=== PATIENT | female | born 1975 | race Caucasian/White ===

== ENCOUNTER → 2019-08-15 15:12 | Outpatient (CLI) | payer OTHER, SELFPAY ==
--- NOTE | ~2019-08-15 | MM_ITS ---
EXAMINATION: MM scrn bell implant BI w dionna HISTORY: Screening mammogram TECHNIQUE: Craniocaudal and mediolateral oblique 3-D tomosynthesis images with implant displacement a nd synthetic 2-D images were generated. Craniocaudal and mediolateral oblique views of the breasts wi thout implant displacement were obtained using full field digital mammography. CAD analysis was submi tted and interpreted. COMPARISON: No prior mammogram is available for comparison at this institution. BREAST PARENCHYMAL COMPOSITION: The breasts are extremely dense, which lowers the sensitivity of mamm ography. FINDINGS: Status post bilateral augmentation mammoplasty. There is no evidence of suspicious mass, ca lcification, or architectural distortion to suggest malignancy in either breast. There has been no hernandez spicious interval change. IMPRESSION: 1. No mammographic evidence of malignancy. 2. Recommend routine screening mammography in one year. BI-RADS Category 1: Negative Reviewed, dictated and finalized at location A. 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
== END ==
PROVIDERS: Visit Provider Nurse Practitioner Obstetrics & Gynecology
DX: Z12.31 Encounter for screening mammogram for malignant neoplasm of breast (principal)
CPT/HCPCS: 77063; 77067

== ENCOUNTER → 2020-03-18 08:49 | Outpatient (CLI) | payer OTHER, SELFPAY ==
--- NOTE | ~2020-03-18 | MMUS_ITS ---
EXAMINATION: MM diag bell implant RT w dionna, US breast RT complete HISTORY: Right breast lump near inframammary fold TECHNIQUE: Implant and implant displaced full field and spot 3-D tomosynthesis images of the right br east were performed and synthetic 2-D images were generated. CAD analysis was submitted and interpret ed. High resolution right complete breast ultrasound was performed. COMPARISON: 08/15/2019 bilateral implant digital screening mammogram BREAST PARENCHYMAL COMPOSITION: The breasts are extremely dense, which lowers the sensitivity of mamm ography. FINDINGS: MAMMOGRAPHIC FINDINGS: Right augmentation mammoplasty. No suspicious mass or architectural distortion, malignant calcification, skin thickening or retractio n is evident. No definite mammographic abnormality is noted at the area of clinical complaint. Due to the complaint of a right breast mass and the very dense stroma which may obscure masses, compl ete right breast ultrasound examination was performed. ULTRASOUND: At 9:00 5 cm from the nipple there is a parallel circumscribed 1.5 x 4.8 x 4.1 mm hypoechoic or sonol ucent lesion with minimal septation, no posterior shadowing; the sonographic features are benign. There is a similar sonolucency measuring 10 x 49 x 52 mm at 4:00 position 8 cm from the nipple. No suspicious solid lesion or shadowing is detected anywhere in the right breast. Right breast implant is noted. IMPRESSION: 1. No mammographic evidence of malignancy 2. Routine mammographic screening is recommended, with supplemental ultrasound as determined appropri ate by patient and physician BI-RADS Category 2: Benign finding(s). Reviewed, dictated and finalized at location A. IMPRESSION: 1. No mammographic evidence of malignancy 2. Routine mammographic screening is recommended, with supplemental ultrasound as determined appropriate by patient and physician BI-RADS Category 2: Benign finding(s).
== END ==
PROVIDERS: Visit Provider Nurse Practitioner Obstetrics & Gynecology
DX: N63.10 Unspecified lump in the right breast, unspecified quadrant (principal); Z98.82 Breast implant status
CPT/HCPCS: 76641; 77061; 77065; G0279

== ENCOUNTER 2020-12-28 08:04 | Outpatient (CLI) | payer OTHER, SELFPAY ==
--- NOTE | ~2020-12-28 | XR_ITS ---
EXAMINATION: XR barium swallow DATE: 12/28/2020 08:51 INDICATION: Dysphagia. Throat clearing. TECHNIQUE: The patient drank thick barium, gas-producing crystals, and thin barium. Fluoroscopic spot radiographs of the hypopharynx and esophagus were obtained. A total of 1369 images were obtained. Fl uoroscopy exposure time was 1.6 minutes. Total DAP was 3.544 mGycm^2 COMPARISON: None. FINDINGS: The pharynx is symmetric and without evidence of mass lesion or mucosal irregularity. The e sophagus is normal without mass or stricture. Esophageal motility is normal. There is no hiatal herni a. There was no gastroesophageal reflux with provocative maneuvers. IMPRESSION: 1. Normal esophagram. Reviewed, dictated and finalized at location A. IMPRESSION: 1. Normal esophagram.
== END 2020-12-28 08:05 | disposition home or self-care (01) ==
PROVIDERS: PCP Nurse Practitioner Family; Visit Provider Otolaryngology
DX: R09.89 Other specified symptoms and signs involving the circulatory and respiratory systems (principal); R13.10 Dysphagia, unspecified
CPT/HCPCS: 74220

== ENCOUNTER → 2021-05-18 12:14 | Outpatient (CLI) | payer OTHER, SELFPAY ==
--- NOTE | ~2021-05-18 | MM_ITS ---
EXAMINATION: MM scrn bell implant BI w dionna HISTORY: Screening mammogram TECHNIQUE: Craniocaudal and mediolateral oblique 3-D tomosynthesis images with implant displacement a nd synthetic 2-D images were generated. Craniocaudal and mediolateral oblique views of the breasts wi thout implant displacement were obtained using full field digital mammography. CAD analysis was submi tted and interpreted. COMPARISON: 03/18/2020, 08/15/2019 BREAST PARENCHYMAL COMPOSITION: The breasts are extremely dense, which lowers the sensitivity of mamm ography. FINDINGS: There is no evidence of suspicious mass, calcification, or architectural distortion to sugg est malignancy in either breast. There has been no suspicious interval change. IMPRESSION: 1. No mammographic evidence of malignancy. 2. Recommend routine screening mammography in one year. BI-RADS Category 1: Negative Reviewed, dictated and finalized at location A. 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
== END ==
PROVIDERS: PCP Nurse Practitioner Family; Visit Provider Nurse Practitioner Obstetrics & Gynecology
DX: Z12.31 Encounter for screening mammogram for malignant neoplasm of breast (principal)
CPT/HCPCS: 77063; 77067

== ENCOUNTER → 2022-07-20 16:03 | Outpatient (CLI) | payer OTHER, SELFPAY ==
--- NOTE | ~2022-07-20 | MM_ITS ---
EXAMINATION: MM scrn bell implant BI w dionna HISTORY: Screening mammogram TECHNIQUE: Craniocaudal and mediolateral oblique 3-D tomosynthesis images with implant displacement a nd synthetic 2-D images were generated. Craniocaudal and mediolateral oblique views of the breasts wi thout implant displacement were obtained using full field digital mammography. CAD analysis was submi tted and interpreted. COMPARISON: 05/18/2021, 03/18/2020, 08/15/2019 BREAST PARENCHYMAL COMPOSITION: The breasts are heterogeneously dense, which may obscure small masses . FINDINGS: There is no evidence of suspicious mass, calcification, or architectural distortion to sugg est malignancy in either breast. There has been no suspicious interval change. IMPRESSION: 1. No mammographic evidence of malignancy. 2. Recommend routine screening mammography in one year. BI-RADS Category 1: Negative Reviewed, dictated and finalized at location A. CH ENGINE OPTIMIZATION CONSULTANT
== END ==
PROVIDERS: PCP Nurse Practitioner Obstetrics & Gynecology; Visit Provider Nurse Practitioner Obstetrics & Gynecology
DX: Z12.31 Encounter for screening mammogram for malignant neoplasm of breast (principal)
CPT/HCPCS: 77063; 77067

== ENCOUNTER 2023-05-05 11:30 | Outpatient (CLI) | payer OTHER, SELFPAY | END 2023-05-05 11:31 | disposition home or self-care (01) | LOC: ANHSURGERY 11:37 | PROVIDERS: PCP Nurse Practitioner Obstetrics & Gynecology; Visit Provider Obstetrics & Gynecology | DX: N92.0 Excessive and frequent menstruation with regular cycle (principal); Z01.818 Encounter for other preprocedural examination | CPT/HCPCS: 36415; 86850; 86900; 86901 ==

== ENCOUNTER 2023-05-10 03:24 | Day surgery (SDC) | payer OTHER, SELFPAY ==
[2023-05-03 08:42] VITALS: BMI 21.4
--- NOTE | 2023-05-03 08:49 | PC.NURSE ---
Report to the Outpatient Waiting Room, entrance under the green pavilion located off [facility], at time 7:00 on date 05/10/23. Planned Procedure Time: 9:00. Time changes happen often and if your time is changed the preop area will call you the afternoon before. - You and your visitor will be asked to self-screen and do not enter if you have any COVID symptoms. - A mask is optional within the hospital at this time. Patients may have clear liquids (water, carbonated beverages, clear teas, apple juice) until 3 hours prior to surgery (6:00) with a maximum of 20 ounces. - No food from midnight until time of surgery Take the following medications with a SIP of water the morning of surgery: NONE DO NOT STOP ANY OF YOUR OTHER PRESCRIPTION MEDICATIONS PRIOR TO SURGERY ?EXCEPT THE FOLLOWING Medications to discontinue per physician: VITAMINS/SUPPLEMENTS Date to take last dose: 05/06/23 Please no make-up, nail spanish, hairspray, perfume, deodorant, or body powder the day of surgery. No jewelry (including any body piercings) or valuables the day of surgery, leave them at home. Please take a shower or bath the night before, or the morning of, surgery with an antibacterial soap. Wear comfortable, loose fitting clothing. - Jewelry must be removed prior to entering the operating room. Rings and piercings that are not removed may be cut off. - The hospital will not accept responsibility for valuables. - Please leave all valuables, including medications, at home the day of surgery. If you are going home after surgery, a licensed driver supervisor must drive you home. - NO public transportation without another adult if you receive anesthesia. - We recommend that an adult stay with you for 24 hours following discharge. - We also recommend that you do not drive, make important decision, drink alcoholic beverages, or take any drugs that were not prescribed by your health care provider for at least 24 hours after your discharge time. Follow any additional instructions given to you from your surgeon. If you or anyone in your household have experienced Covid symptoms in the past week, please notify your surgeon or the nurse liaison at the phone number below for possible testing. Telephone instructions given to PT - ADAM CABRERA and asked if any additional questions and then verbalized understanding. Patient advised to call surgeon office or pre surgery nurse liaison [phone] if any additional questions.
[2023-05-10] VITALS (13 sets, daily range): BP systolic 102–112; BP diastolic 57–77; PULSE 52–93; RESP 13–18; TEMP 36.1–37.5; O2SAT 98–100; BMI 21.4
--- NOTE | 2023-05-10 07:13 | WPDHPUPDATE1 ---
History and Physical Update Update Date/Time: 05/10/23 07:13 History and Physical has been reviewed, including an updated exam of the patient. There are NO changes in the patient's condition. Risks, benefits, and alternatives have been discussed and questions answered. Patient agrees to proceed with procedure.
[2023-05-10] MEDS: LACTATED RINGERS 1,000 ML 30 ML IV CONT ×2 (08:15→10:42)
--- NOTE | 2023-05-10 08:24 | P.PNAN_ITS ---
Anes - Initial Pre Proc Eval Procedure: Operation Date: 05/10/23 09:00 Proposed Procedures p Total Laparoscopic Hysterectomy with Bilateral Salpingectomy, with Left Oophorectomy - Mague Nance MD Date/Time: 05/10/23 08:24 Surgeon: Mague Nance MD Pre Op Diagnosis: menorrhagia, pain in pelvic Patient Data Age: 47 Gender: F Height: 1.69 m Weight: 61.25 kg Allergies Allergy/AdvReac Type Severity Reaction Status Date / Time No Known Allergies Allergy Verified 05/03/23 08:43 Home Medications Medication Instructions Recorded Confirmed Type multivitamin 1 tablet PO DAILY 12/23/20 05/03/23 History Lactobacillus 1 cap PO DAILY 05/03/23 05/03/23 History acidophilus-Bifidobac.animalis 2.5 billion cell capsule (Daily Probiotic) Patient hx anesthesia problems: none Family hx anesthesia problems: none Results Review: All pre-operative results and documents have been reviewed as part of the pre- operative evaluation. PMFSH Family History Family History Mother Depression Grandparent Colon cancer Lung cancer Grandparent Malignant neoplasm of prostate Skin cancer Social History Social History Smoking status: Never smoker Tobacco type: cigarettes Alcohol intake: current Drinks per week: 1 Substance use: never Substance use type: does not use Living arrangements: with family Spiritual care concerns: No Anes - Eval Final PreProcedure Day of Procedure 05/10/23 08:24 Patient weight: normal Heart: regular rate and rhythm Lungs: clear to auscultation Airway: Mallampati scale class II Neurological: alert and oriented Last oral intake: >/= 8 hours ASA classification: I Emergent: yes Anesthetic plan: proceed Anesthesia type and monitoring: general ETT and standard monitoring Results Review: All pre-operative results and documents have been reviewed as part of the pre- operative evaluation. Informed Consent: The patient's anesthetic plan and its attendant risks and benefits were discussed with the patient/family/POA. Questions were solicited and answers provided to the satisfaction of the patient/family/POA.
[2023-05-10] MEDS: KETOROLAC 15 MG/ML VIAL (*BKC) IV PUSH (08:28)
[2023-05-10] MEDS: ACETAMINOPHEN 500 MG TABLET 1000 MG PO (08:28)
[2023-05-10] MEDS: ceFAZolin 2 GM/D5W 50 ML 2 GM/50 ML BAG IVPB (08:44)
[2023-05-10] MEDS: ceFAZolin SODIUM 1 GM VIAL (10:16)
[2023-05-10] MEDS: fentaNYL CITRATE INJ (*CRX) 100 MCG/2 ML VIAL 25 MCG IV PUSH ×2 (11:37→12:02)
[2023-05-10] MEDS: KETOROLAC 30 MG/ML VIAL (*BKC) IV PUSH ×2 (12:38→20:23)
[2023-05-10] MEDS: DEXTROSE 5%/0.45% SOD CHL 1,000 ML 125 ML IV CONT (12:38)
[2023-05-10] MEDS: HYDROcodone/acetaminophen (*CRX) 5-325 MG TABLET 1 TAB PO ×3 (14:17→20:23)
[2023-05-11 00:30] VITALS: BP 106/56; PULSE 79; RESP 16; TEMP 37.2; O2SAT 97
[2023-05-11 03:00] VITALS: BP 113/73; PULSE 61; RESP 16; TEMP 36.9; O2SAT 99
[2023-05-11] MEDS: HYDROcodone/acetaminophen (*CRX) 5-325 MG TABLET 1 TAB PO ×2 (03:01→09:07)
[2023-05-11] MEDS: KETOROLAC 30 MG/ML VIAL (*BKC) IV PUSH (03:01)
--- NOTE | 2023-05-11 08:03 | PM.GYNPNOP ---
CATERPILLAR OPERATOR - A/P Postoperative Procedures: Procedures Operation Date: 05/10/23 09:00 Actual Procedure Side Surgeon p Total Laparoscopic Hysterectomy with Bilateral Salpingectomy, with Left Oophorectomy Left R. Rakan Nance MD Postoperative day: 1 Postoperative status: doing well Postoperative plan: see orders Time Spent With Patient Time: Total time spent is greater than 50% in coordination of care (as documented) at patient's floor/unit and/or counseling patient: Time with patient: less than 15 minutes CATERPILLAR OPERATOR- PN:Subj Post-Op Subjective Date/time seen: 05/11/23 08:03 Subjective: patient reports feeling better, patient has no complaints and pain is well controlled Exam Const: General: healthy appearing, comfortable and no acute distress Resp: Auscultation: clear to auscultation bilaterally, no rales, no rhonchi and no wheezes Cardio: Rate: regular rate Heart sounds: no click, no murmurs and no rubs GI: Inspection: non-distended Auscultation: normal bowel sounds Extrem: General: normal to inspection, no pedal edema and no calf tenderness CATERPILLAR OPERATOR - PN: Obj Data Vital Signs Vital Signs: Vital Signs - 24 hr 05/10/23 10:42 05/10/23 10:45 05/10/23 11:00 Temperature 96.9 F L Pulse Rate 65 64 61 Respiratory Rate 15 13 15 Blood Pressure 103/69 112/74 111/77 Pulse Oximetry 100 100 100 Oxygen Delivery Simple Face Mask Simple Face Mask Oxygen Flow Rate 6 6 6 05/10/23 11:06 05/10/23 11:16 05/10/23 11:30 Temperature Pulse Rate 52 L 61 Respiratory Rate 13 14 Blood Pressure 111/74 110/71 Pulse Oximetry 100 100 100 Oxygen Delivery Room Air Room Air Room Air Oxygen Flow Rate 05/10/23 11:45 05/10/23 12:00 05/10/23 12:12 Temperature Pulse Rate 56 L 61 64 Respiratory Rate 15 14 14 Blood Pressure 112/70 103/66 102/71 Pulse Oximetry 100 100 100 Oxygen Delivery Room Air Room Air Room Air Oxygen Flow Rate 05/10/23 12:25 05/10/23 16:15 05/10/23 19:40 Temperature 97.7 F 97.8 F 99.5 F Pulse Rate 66 93 78 Respiratory Rate 16 18 16 Blood Pressure 112/70 107/71 111/74 Pulse Oximetry 100 100 98 Oxygen Delivery Oxygen Flow Rate 05/11/23 00:30 05/11/23 03:00 Temperature 98.9 F 98.5 F Pulse Rate 79 61 Respiratory Rate 16 16 Blood Pressure 106/56 L 113/73 Pulse Oximetry 97 99 Oxygen Delivery Oxygen Flow Rate Intake/Output Intake/Output: Intake & Output 05/08/23 05/09/23 05/10/23 05/11/23 23:59 23:59 23:59 23:59 Intake Total 1735 Output Total 820 Balance 915 Meds/Results Medications: Active Medications Generic Name Dose Route Start Last Admin Trade Name Freq PRN Reason Stop Dose Admin Hydrocodone Bitart/Acetaminophen 1 tab 05/10/23 12:16 05/11/23 03:01 Hydrocodone/Acetaminophen (*Crx) 5-325 Mg Tablet PO 1 tab Q3H PRN Administration Pain Rated 5 or Less Hydrocodone Bitart/Acetaminophen 1 tab 05/10/23 12:16 Hydrocodone/Acetaminophen (*Crx) 10-325 Mg Tablet PO Q3H PRN Pain Rated 6 or Greater Dextrose/Sodium Chloride 1,000 mls @ 125 mls/hr 05/10/23 12:16 05/11/23 05:37 Dextrose 5% Sodium Chloride 0.45% IV CONT Not Given .Q8H NURA Ibuprofen 600 mg 05/10/23 12:16 Ibuprofen 600 Mg Tablet PO Q6H PRN Cramping Ketorolac Tromethamine 30 mg 05/10/23 12:16 05/11/23 03:01 Ketorolac 30 Mg/Ml Vial (*Bkc) IV PUSH 05/15/23 12:15 30 mg Q6H PRN Administration Pain Rated 4-6 Naloxone HCl 0.1 mg 05/10/23 12:16 Naloxone Hcl 0.4 Mg/Ml Vial IV PUSH Q2M PRN Respiratory rate less than 10 Ondansetron HCl 4 mg 05/10/23 12:16 Ondansetron Inj 4 Mg/2 Ml Vial IV PUSH Q6H PRN Nausea And Vomiting
[2023-05-11 08:20] VITALS: BP 108/58; PULSE 72; RESP 16; TEMP 37.1; O2SAT 100
--- NOTE | 2023-05-11 08:45 | WPDANESPN ---
Anes - Prog Note Post-Op Date/Time: 05/11/23 08:45 Cardiovascular status: normal Respiratory status: normal Airway patency: baseline Mental status: baseline Post-Op hydration status: normal Vital Signs: Last Vital Signs Temp 36.9 C 05/11/23 03:00 Pulse 61 05/11/23 03:00 Resp 16 05/11/23 03:00 BP 113/73 05/11/23 03:00 Pulse Ox 99 05/11/23 03:00 O2 Del Method Room Air 05/10/23 12:12 O2 Flow Rate 6 05/10/23 11:00 Pain Score (VAS): 2/10 I/O: Intake & Output 05/10/23 05/11/23 05/11/23 23:59 07:59 15:59 Intake Total 1685 Output Total 800 Balance 885 Post-procedural complaints: other (shivering) Patient Feedback: Patient satisfied with anesthetic care.
[2023-05-11] MEDS: IBUPROFEN 600 MG TABLET PO (09:07)
--- NOTE | 2023-06-11 20:46 | W.PM.PROC2 ---
Procedure Note - Detailed Date of Procedure 06/11/23 Pre-op Diagnosis menorrhagia, pain in pelvic Post-op Diagnosis Same Procedure Performed Total laparoscopic hysterectomy and left salpingo-oophorectomy. Surgeon Mague Nance MD Anesthesia General Findings mildly enlarged uterus, normal-appearing bilateral tubes and ovaries. Description of Procedure This patient was taken to the operating room. She was prepped and draped in the dorsal lithotomy position after induction of general anesthesia. The uterine manipulator and Yasemin cup were placed. This was done with a speculum and tenaculum. The speculum was placed. The cervix was grasped with a tenaculum. The stay sutures were placed at 3 and 9:00 a.m.. The stay sutures of 0 Vicryl were brought through the appropriately sized Yasemin cup. The tip of the LU manipulator was placed in the intrauterine cavity. The cup was slid into place around the cervix and into the fornices. It was locked into place. The sutures were then wrapped around the handle and tied under tension. A 5 mm skin incision was made in the left upper quadrant the abdomen. A 5 mm trocar was inserted into the intrauterine cavity under direct visualization of the scope. Pneumoperitoneum was achieved. A left lower quadrant 11 mm incision was made with scalpel. An 11 mm trocar was inserted into the anterior abdominal cavity under direct visualization the scope. A 5 mm infraumbilical incision was made with a scalpel and a 5 mm trocar was inserted the intra-abdominal cavity under direct visualization of the scope. Bilateral ureteral lysis was performed. This was done from the pelvic brim down to the uterine artery. This was done with careful dissection using sharp and blunt dissection. On the left: The infundibulopelvic ligaments were isolated after identification of the ureters bilaterally. These infundibulopelvic ligaments were cauterized and transected with LigaSure cautery. The para ovarian tissue was cauterized and transected with LigaSure cautery bilaterally. Moving around the ovary into the broad ligament the tissue was cauterized transected with LigaSure cautery. The round ligaments were cauterized transected with LigaSure cautery this was all done in a bilateral fashion. on the right: The fallopian tube was removed. The mesosalpinx was cauterized and transected stalk hinojosa fashion around the tube towards the cornua. The fallopian tube was amputated at the cornua and taken off the left lower quadrant trocar site. The round ligament and suspensory ligament the ovary was cauterized and transected. In a stepwise fashion along the lateral aspects of the uterus the round ligament and broad ligaments were cauterized transected down to the level of the uterine arteries. A bladder flap was created in the bladder was moved distally to the end of the cervix and over the Yasemin cup. The bilateral uterine arteries were cauterized and transected. Colpotomy was then performed. In a circumferential fashion the vagina was transected using unipolar cautery. The incision was made down on the Yasemin cup. The uterus, cervix, fallopian tubes and ovaries were taken out through the vagina. A pneumo occluder was placed in the vagina. The vaginal cuff was closed with a 0 V lock suture in a running fashion. The pelvis was irrigated with copious amounts antibiotic irrigation. The ureters were again examined and found to be intact and flowing freely under the uterine arteries into the bladder. The bladder was intact. It was examined directly. The vagina was irrigated with Betadine solution after removal of the Pneumo occluder. The patient was taken to recovery room. She was stable condition. Sponge lap and needle counts were correct x2. Estimated Blood Loss 75 Urine Output 250 Drains Yes Packing No Pathology Yes Complications No immediate complications Condition Stable Disposition Floor
== END 2023-05-11 10:25 | disposition home or self-care (01) ==
LOC: ANHSURGERY 06:58 → ANHOB2 12:18
PROVIDERS: PCP Nurse Practitioner Obstetrics & Gynecology; Visit Provider Obstetrics & Gynecology
PROC: 0UT9FZZ Resection of Uterus, Via Natural or Artificial Opening With Percutaneous Endoscopic Assistance (ICD-10-PCS; CPT 58571; principal; 2023-05-10 09:00)
DX: N92.0 Excessive and frequent menstruation with regular cycle (principal); R10.2 Pelvic and perineal pain; N83.202 Unspecified ovarian cyst, left side
CPT/HCPCS: 58571; 36415; 86850; 86900; 86901; 88307; 99199; A9270; J0690; J1100; J1170; J1885; J2250; J2405; J2704; J3010; J7120

== ENCOUNTER → 2023-08-22 11:48 | Outpatient (CLI) | payer OTHER, SELFPAY ==
--- NOTE | ~2023-08-22 | MM_ITS ---
EXAMINATION: MM scrn bell implant BI w dionna HISTORY: Screening mammogram TECHNIQUE: Craniocaudal and mediolateral oblique 3-D tomosynthesis images with implant displacement a nd synthetic 2-D images were generated. Craniocaudal and mediolateral oblique views of the breasts wi thout implant displacement were obtained using full field digital mammography. CAD analysis was submi tted and interpreted. COMPARISON: Comparison to multiple prior studies sequentially, with oldest reviewed study dated 08/15. BREAST PARENCHYMAL COMPOSITION: Dense: The breasts are extremely dense, which lowers the sensitivity of mammography. FINDINGS: There is no evidence of suspicious mass, calcification, or architectural distortion to sugg est malignancy in either breast. There has been no suspicious interval change. IMPRESSION: 1. No mammographic evidence of malignancy. 2. Recommend routine screening mammography in one year. BI-RADS Category 1: Negative Reviewed, dictated and finalized at location A. SPOTTER
== END ==
PROVIDERS: PCP Nurse Practitioner Obstetrics & Gynecology; Visit Provider Nurse Practitioner Obstetrics & Gynecology
DX: Z12.31 Encounter for screening mammogram for malignant neoplasm of breast (principal)
CPT/HCPCS: 77063; 77067

== ENCOUNTER 2023-12-15 08:15 | Outpatient (CLI) | payer BC, SELFPAY ==
--- NOTE | ~2023-12-15 | MMUS_ITS ---
EXAMINATION: MM diag bell implant RT w dionna, US breast RT complete HISTORY: Palpable right breast abnormality. TECHNIQUE: Additional 3-D tomosynthesis images of the right breast were performed and synthetic 2-D i mages were generated. CAD analysis was submitted and interpreted. High resolution complete right adrianne st ultrasound was performed. COMPARISON: 08/15/2019 BREAST PARENCHYMAL COMPOSITION: Dense: The breasts are extremely dense, which lowers the sensitivity of mammography. FINDINGS: MAMMOGRAPHIC FINDINGS: There are no suspicious masses, calcifications or architectural distortion in the right breast to sug gest malignancy. There is a subpectoral breast implant. ULTRASOUND: Complete US of all 4 quadrants of the right breast and retroareolar region was reviewed. At 3:00, 4 c m from the nipple, there is a 5 mm cyst. At 6:00, 7 cm from the nipple there is an oval hypoechoic ma ss with parallel orientation measuring 6 mm. No posterior features or internal vascularity. At 9:00, 3.5 cm from the nipple there is a 9 mm cyst. At 10:00, 7 cm from the nipple there is a 1.3 cm cyst. A t 9:00, 6 cm from the nipple, there is a 5 mm cyst. At 11:00, 10 cm from the nipple, there is an 8 mm cyst. IMPRESSION: 1. Probable benign right breast mass at 6:00, 7 cm from the nipple. Multiple additional benign cysts are present in the right breast. 2. Recommend 6 month follow-up Limited right breast ultrasound BI-RADS category 3, probably benign findings. Reviewed, dictated and finalized at location B. IMPRESSION: 1. Probable benign right breast mass at 6:00, 7 cm from the nipple. Multiple ad ditional benign cysts are present in the right breast. 2. Recommend 6 month follow-up Limited right breast ultrasound BI-RADS category 3, probably benign findings.
== END 2023-12-15 08:16 ==
LOC: MICIMG 08:17
PROVIDERS: PCP Nurse Practitioner Obstetrics & Gynecology; Visit Provider Nurse Practitioner Obstetrics & Gynecology
DX: R92.8 Other abnormal and inconclusive findings on diagnostic imaging of breast (principal)
CPT/HCPCS: 76641; 77061; 77065; G0279

== ENCOUNTER 2024-01-15 12:39 | Outpatient (CLI) | payer BC, SELFPAY ==
--- NOTE | ~2024-01-15 | MR_ITS ---
MR breast BI wo/w con 01/16/2024 08:16 CDT INDICATION: Right breast mass TECHNIQUE: MRI of the breasts perform using standard protocol pre-and post IV contrast with the follo wing sequences: Axial T2 STIR, axial T1, axial vibrant T1 with fat suppression precontrast and multip hasic postcontrast. 12 cc MultiHance administered intravenously. COMPARISON: Diagnostic mammogram and ultrasound dated 12/15/2023 FINDINGS: There are no abnormalities on the precontrast sequences. There is mild background parenchym al enhancement. In the lower outer quadrant of the right breast at 7:00, middle third, 6.1 cm from th e nipple there is an oval 5 x 5 x 3 mm mass which appears circumscribed. There is heterogeneous enhan cement with rapid washout kinetics. This mass lies anterior to the right breast implant. This likely corresponds to the mammographic and sonographic abnormality. No evidence of signal abnormalities in t he axillary or internal mammary node distributions. No evidence for implant rupture. There are normal radial folds. There are multiple right breast cysts. LEFT BREAST: No signal abnormalities on precontrast sequences. There is mild background parenchymal enhancement. No enhancing lesions following contrast administration. No areas of enhancement meeti ng threshold criteria on CAD analysis. No evidence of signal abnormalities in the axillary or inter nal mammary node distributions. No evidence for implant rupture. There are normal radial folds. There are left breast cysts. IMPRESSION: 1: Right breast: Oval circumscribed 5 mm mass with rapid washout kinetics at 7:00 in the lower outer quadrant 6.1 cm from the nipple. This likely corresponds to the ultrasound finding from 12/15/2023. T his is likely benign. Six-month follow-up right breast ultrasound recommended. BI-RADS Category 3. 2: Left breast: Negative. No evidence of malignancy. BI-RADS category 1. Recommend annual mammogr aphy follow-up. Follow-up MRI may be useful for supplementing mammographic evaluation as clinically indicated. Reviewed, dictated and finalized at location B. IMPRESSION: 1: Right breast: Oval circumscribed 5 mm mass with rapid washout kinetics at 7 :00 in the lower outer quadrant 6.1 cm from the nipple. This likely corresponds to the ultrasound finding from 12/15/2023. This is likely benign. Six-month fol low-up right breast ultrasound recommended. BI-RADS Category 3. 2: Left breast: Negative. No evidence of malignancy. BI-RADS category 1. Re commend annual mammography follow-up. Follow-up MRI may be useful for supplementing mammographic evaluation as clinic ally indicated.
== END 2024-01-15 12:40 | disposition home or self-care (01) ==
PROVIDERS: Visit Provider Surgery
DX: R92.8 Other abnormal and inconclusive findings on diagnostic imaging of breast (principal); Z98.82 Breast implant status; N63.10 Unspecified lump in the right breast, unspecified quadrant
CPT/HCPCS: 77049; A9577; C8908

== ENCOUNTER 2024-08-27 15:48 | Outpatient (CLI) | payer BC, SELFPAY ==
--- NOTE | ~2024-08-27 | MM_ITS ---
EXAMINATION: MM scrn bell implant BI w dionna HISTORY: Screening mammogram TECHNIQUE: Craniocaudal and mediolateral oblique 3-D tomosynthesis images with implant displacement a nd synthetic 2-D images were generated. Craniocaudal and mediolateral oblique views of the breasts wi thout implant displacement were obtained using full field digital mammography. CAD analysis was submi tted and interpreted. COMPARISON: 12/15/2023, 08/22/2023, 07/20/2022, 05/18/2021 BREAST PARENCHYMAL COMPOSITION: The breasts are extremely dense, which lowers the sensitivity of mamm ography. FINDINGS: There is no evidence of suspicious mass, calcification, or architectural distortion to sugg est malignancy in either breast. There has been no suspicious interval change. IMPRESSION: No mammographic evidence of malignancy. Recommend routine screening mammography in one year. BI-RADS Category 1: Negative Reviewed, dictated and finalized at [facility]. [employer]
== END 2024-08-27 15:49 | disposition home or self-care (01) ==
PROVIDERS: PCP Obstetrics & Gynecology; Visit Provider Obstetrics & Gynecology
DX: Z12.31 Encounter for screening mammogram for malignant neoplasm of breast (principal)
CPT/HCPCS: 77063; 77067

== ENCOUNTER 2024-10-18 10:13 | Outpatient (CLI) | payer BC, SELFPAY ==
--- NOTE | ~2024-10-18 | US_ITS ---
US breast RT limited 10/18/2024 10:24 Indication: Follow-up right breast mass Procedure: High-resolution Limited ultrasound of the right breast Comparison: Ultrasound dated 12/15/2023 Findings: Stable benign oval circumscribed parallel oriented hypoechoic mass measuring 5 mm without i nternal vascularity or posterior features, consistent with benign intramammary lymph node. No sonogra phic evidence for malignancy. Impression: 1: No evidence for malignancy in the right breast. Benign finding. Routine yearly screening mammogram and regular clinical breast examination are recommended. BI-RADS CATEGORY 2 - BENIGN FINDINGS Reviewed, dictated and finalized at location B. Impression: 1: No evidence for malignancy in the right breast. Benign finding. Routine yearly screening mammogram and regular clinical breast examination are recommended. BI-RADS CATEGORY 2 - BENIGN FINDINGS
== END 2024-10-18 10:14 | disposition home or self-care (01) ==
LOC: MICIMG 10:13
PROVIDERS: PCP Obstetrics & Gynecology; Visit Provider Surgery
DX: R92.8 Other abnormal and inconclusive findings on diagnostic imaging of breast (principal); Z98.82 Breast implant status; N63.10 Unspecified lump in the right breast, unspecified quadrant
CPT/HCPCS: 76642

== ENCOUNTER 2025-04-30 13:52 | Outpatient (CLI) | payer OTHER, SELFPAY ==
--- NOTE | ~2025-04-30 | MR_ITS ---
MR breast BI wo/w con 05/01/2025 07:18 CDT INDICATION: Inconclusive findings on prior diagnostic imaging. Previous 5 mm right breast mass seen at lower outer quadrant 6.1 cm from the nipple. TECHNIQUE: MRI of the breasts perform using standard protocol pre-and post IV contrast with the following sequences: Axial T2 STIR, axial T1, axial vibrant T1 with fat suppression precontrast and multiphasic postcontrast. 12 cc MultiHance administered intravenously. COMPARISON: MRI dated 01/15/2024 FINDINGS: There is mild bilateral uptake in the periimplant soft tissues, right greater than left, likely capsular fibrosis/contraction or fat necrosis. There are a few small bilateral breast cysts. Right breast: There are no abnormalities on the precontrast sequences. There is moderate background parenchymal enhancement. No enhancing lesions following contrast administration. No areas of enhancement meeting threshold criteria on CAD analysis. No evidence of signal abnormalities in the axillary or internal mammary node distributions. LEFT BREAST: No signal abnormalities on precontrast sequences. There is moderate background parenchymal enhancement. No enhancing lesions following contrast administration. No areas of enhancement meeting threshold criteria on CAD analysis. No evidence of signal abnormalities in the axillary or internal mammary node distributions.] IMPRESSION: 1: Right breast: Negative. No evidence of malignancy. BI-RADS category 2. Recommend annual mammography follow-up. 2: Left breast: Negative. No evidence of malignancy. BI-RADS category 2. Recommend annual mammography follow-up. Reviewed, dictated and finalized at location B. IMPRESSION: 1: Right breast: Negative. No evidence of malignancy. BI-RADS category 2. Recommend annual mammography follow-up. 2: Left breast: Negative. No evidence of malignancy. BI-RADS category 2. Re commend annual mammography follow-up.
--- OUTSIDE RECORDS SUMMARY | 2025-04-30 15:35 | XMS_ITS | Patient Health Record ---
Author Organization [facility] Address [address] [place] [address] Care Team Providers Care Corrections Sergeant Name Role Phone Arielle neely Primary Care Provider MirelaKENDRA Holland Unavailable [phone] Allergies No Known Allergies Reason For Referral No Information Medications Medication SIG (Take, Route, Frequency, Duration) Notes Start Date End Date Status Stool Softener 100 MG Capsule 1 capsule as needed Orally Once a day; Duration: 30 day(s) Active Multivitamin - Tablet 1 tablet Orally On ce a day; Duration: 30 day(s) Active Probiotic - Tablet Delayed Release as directed Orally Active Social History Tobacco Use: Social History Observation Description Date Details (start date - stop date) Never Smoker NA - NA Social History Tobacco Use: Social Info Question Answer Notes Tobacco Use/Smoking Are you a nonsmoker Problems Problem Type SNOMED Code ICD Code Onset Dates Problem Status W/U Status Risk Notes Problem Pain co-occurrent and due to varicose veins of bilateral legs ([id number]) Varicose veins of leg with pain, bilateral (I83.813) Active confirmed Plan Of Treatment No Information Insurance Providers Payer Name Payer Address Payer Phone Subscriber Number Group Number Insured Name Patient Relationship to Insured Coverage Start Date Coverage End Date INS [address] [place] [address] [id number] Jaswinder Flores Spouse - patient is the spouse of the insured Medical (General) History Surgical History Surgery Date(Month/Year) Tonsil removal 2003 breast augmentation 2013
--- OUTSIDE RECORDS SUMMARY | 2025-04-30 15:36 | XMS_ITS | Clinical Summary ---
Author Organization [facility] Address [address] [place] [address] Care Team Providers Care Director Of Broadcast Name Role Phone Arielle Olsen NP Primary Care Provider [phone] Allergies No known active allergies Medications multivitamin (MULTIPLE VITAMINS ORAL) Take by mouth A ctive estradioL (ESTRACE) 1 mg tablet Take 1 tablet (1 mg total) by mouth 4 Active docusate sodium (COLACE) 100 mg capsule daily Active cyclobenzaprine (FLEXERIL) 5 mg tablet Take 1 tablet (5 mg total) by mouth nightly as needed for muscle spasms 30 tablet 4 Active Additional Information Patient not taking.Reported on 07/11/2024 naproxen (NAPROSYN) 500 mg tablet Take 1 tablet (500 mg total) by mouth 2 (two) times a day as needed for pain (pain) 60 tablet 3 4 Active acetaminophen (TYLENOL) 500 mg tablet Take 2 tablets (1,000 mg total) by mouth as needed for pain Active Active Problems Problem Noted Date Diagnosed Date Hot tub folliculitis 05/19/2024 Assessment & Plan (05/19/2024 8:39 AM SNUFF CONTAINER INSPECTOR): Ciprofloxacin 750mg bid x 7 days. She has corrected her chemicals in her hot tub. Will call if no improvement in rash. Cervicalgia 03/20/2024 Assessment & Plan (03/20/2024 11:18 AM CDT): Steroid taper, naproxen 500 mg b.i.d.. Flexeril at bedtime as needed. Refer to physical therapy. I told her district manager primary care sales is up to her if it is helping. I will refer to Orthopedics for her shoulder. I told her if pain is coming from her neck then we will need to refer her elsewhere, consider pain management. Will get an x-ray of her cervical spine and shoulder today. Acute pain of left shoulder 03/20/2024 Primary osteoarthritis of left knee 02/20/2024 Assessment & Plan (02/20/2024 9:29 AM CDT): I am suspicious for a pride's cyst given posterior knee pain with calf pain that has improved and mild burning pain laterally. Having some improvement of symptoms today. May continue ibuprofen as needed. Will have her follow up with sports medicine. May slowly restart exercise routine. Pain due to varicose veins of both lower extremi ties 07/06/2022 Annual physical exam 01/17/2021 Assessment & Plan (06/14/2024 9:02 PM SNUFF CONTAINER INSPECTOR): -Recommended: Healthy diet. Avoiding junk food/fast food. -30 minutes of exercise most days of the week. Increase to 45 minutes for weight loss. Health Maintenance reviewed - reviewed labs and they are normal. -Influenza vaccine every year Recommend: -There are no preventive care reminders to display for this patient. -F/u in 1 year for Annual PE or sooner if needed Assessment & Plan (07/06/2022 10:22 AM SNUFF CONTAINER INSPECTOR): -Recommended: Healthy diet. Avoiding junk food/fast food. -30 minutes of exercise most days of the week. Increase to 45 minutes for weight loss. Immunizations: Recommended influenza vaccine continue present diet with no restrictions, continue present plan, routine labs ordered, call if any problems Follow-up in 1 year. Assessment & Plan (01/17/2021 8:50 PM CDT): -Recommended: Healthy diet. Avoiding junk food/fast food. -30 minutes of exercise most days of the week. Increase to 45 minutes for weight loss. Immunizations: Recommended COVID vaccine, patient does not wish to pursue at this time continue present plan, previous to feels labs reviewed and will repeat in 2-3 months her as patient has changed diet and wishes to recheck Follow-up in 1 year. Irritable bowel syndrome with diarrhea Assessment & Plan (05/19/2021 1:03 PM SNUFF CONTAINER INSPECTOR): Doing better. Will check tTG IgA. Assessment & Plan (09/14/2020 8:52 PM CDT): Chronic. She is doing better since she started on gluten free diet. She was encouraged to continue lifestyle and dietary modification. Assessment & Plan (07/14/2020 4:53 PM SNUFF CONTAINER INSPECTOR): Chronic. High fiber diet Resolved Problems Problem Noted Date Diagnosed Date Resolved Date Internal hemorrhoid 08/23/2022 02/20/20 Overview (08/23/2022): Added automatically from request for surgery [id number] Globus pharyngeus 04/20/2021 02/20/2024 Overview (04/20/2021): Added automatically from request for surgery [id number] Assessment & Plan (05/19/2021 1:03 PM SNUFF CONTAINER INSPECTOR): Symptoms persist but mild. Recent Esophagogastroduodenoscopy revealed no evidence of stricture or microscopic evidence of eosinophilic esophagitis. She had also being evaluated by ENT with laryngoscopy and barium esophagram. She does have a history of mild anxiety. She was reassured. She will be started on desipramine 25 mg HS. Residual hemorrhoidal skin tags 09/14/2020 02/20/2024 Assessment & Plan (06/22/2022 1:39 PM SNUFF CONTAINER INSPECTOR): Persistent perianal discomfort from engorged external hemorrhoid/skin tag. Has tried stool softeners and suppositories with no relief. She desires permanent cure. She is referred to colorectal surgeon for evaluation and possible treatment. Assessment & Plan (09/14/2020 8:51 PM CDT): Patient complains of intermittent encouragement of anal skin tag usually following bouts of diarrhea especially around her menstrual period. Likely due to worsening hemorrhoids. She was advised to do Sitz baths. Anusol HC suppository to be used p.r.n. is prescribed. She was advised to call me if symptoms become worse. At that point she will be referred to the surgeon for evaluation. Anal fissure 07/14/2020 02/20/2024 Assessment & Plan (06/22/2022 1:40 PM SNUFF CONTAINER INSPECTOR): Was doing well but recently started having significant anal pain causing difficulty with sitting. Likely has prolapsed hemorrhoids versus recurrent fissure. Advised to continue Anusol HC suppository and Colace. Referred to surgeon for evaluation. Assessment & Plan (09/14/2020 8:52 PM CDT): Doing better at this time. Recent colonoscopy revealed healing fissure and internal hemorrhoids. She currently does not have pain at rest except only following bouts of diarrhea.. I suspect this episodes are likely due to thrombosed hemorrhoids. She was advised to do Sitz baths and use Anusol HC suppository. Should be referred to surgeon for evaluation if symptoms worsen. Assessment & Plan (07/14/2020 4:52 PM SNUFF CONTAINER INSPECTOR): Moderately severe pain. Has tried NSAIDS and Sitz baths with some relief. Plan Rectiv prescribed. Continue Sitz baths. Colace 100 mg bid. Blood in stool 07/09/2020 02/20/2024 Assessment & Plan (07/14/2020 4:55 PM SNUFF CONTAINER INSPECTOR): Likely due to anal fissures. Less likely IBD. Plan Check CBC, CMP. Colonoscopy in a few weeks. Assessment & Plan (07/09/2020 12:31 PM SNUFF CONTAINER INSPECTOR): Maternal grandmother had colon cancer. Will refer to GI for further evaluation for current problem and for blood seen in stool. I am not seeing any obvious tears or fissures at the point of tenderness which is just anterior to the rectum. She does have a small piece of extra skin there. I am going to give her some Anusol to rub on the area and to use internally and I told her to soak in Epson salt baths. Keep stools soft so that she is not constipated and straining. And refer to GI for further evaluation treatment patient was agreeable with plan of care Immunizations Immunization Administration Dates Next Due Influenza, Quadrivalent, Amanda l Culture-based MDCK, Antibiotic Free, Intramuscular 06/13/2018 Influenza, Unspecified 02/20/2024(Deferr ed: Patient Refused),07/03/2023(Deferred: Patient Refused),07/06/2022(Deferred: Patient Refused),04/02/2021(Deferred: Patient Refused),07/09/2020(Deferred: Patient Refused),04/02/2020,04/02/2020, 019,04/02/2019 Pfizer SARS-CoV-2 Monovalent Vaccination (12+ Yrs) PURPLE 03/25/2021 Tdap 02/19/2018,02/19/2018 Surgical History Surgery Date Site/Laterality Comments TONSILLECTOMY AND ADENOIDECTOMY 07/03/2003 - 07/02/2004 CERVICAL BIOPSY W/ LOOP ELEC TRODE EXCISION 07/03/2003 - 07/02/2004 BREAST SURGERY 07/03/2013 - 07/02/2014 Breast lift with implants ESOPHAGOGASTRODUODENOSCOPY HYSTERECTOMY Medical History Medical History Date Comments Rectal bleeding Internal hemorrhoid 08/23/2022 Added automa tically from request for surgery [id number] Menstrual problem Family History Medical History Relation Name Comments Lung cancer Maternal Grandfather Colon cancer Maternal Grandmother Hypertension Mother Mom Skin cancer Paternal Grandfather Alzheimer's disease Paternal Grandmother Grandmother Prostate cancer Paternal Grandmother Grandmother Relation Name Status Comments Brother 1 Alive Brother 2 Alive Daughter Alive Father Alive Maternal Grandfather Maternal Grandmother Mother Mom Alive Paternal Grandfather Paternal Grandmother Grandmother Sister 1 Alive Sister 2 Alive Son 1 Alive Son 2 Alive Social History Tobacco Use Types Packs/Day Years Used Date Smoking Tobacco: Never Passive Smoke Exposure: Never Smokeless Tobacco: Never Tobacco Cessation:Counseling Given: Not Answered Alcohol Use Standard Drinks/Week Comments Yes 0 (1 standard drink = 0.6 oz pur e alcohol) socially AUDIT-C Answer Date Recorded Q1: How often do you have a drink containing alc ohol? Monthly or less 05/15/2024 Q2: How many drinks containi ng alcohol do you have on a typical day when you are drinking? 1 or 2 05/15/2024 Q3: How often do you have si x or more drinks on one occasion? Never 05/15/2024 PHQ-2 Answer Date Recorded PHQ-2 Total Score (If total score is 3 or more points, staff should administer the PHQ-9) 0 05/15/2024 Personal Safety Answer Date Recorded Have you ever been in or are you currently in a harmful physical or emotional relationship or is someone making you feel afraid or unsafe? Denies 05/12/2024 Comments No Sex and Gender Information Value Date Recorded Sex Assigned at Not on file Legal Sex Female 12:31 PM CDT Gender Identity Not on file Sexual Orientation Not on file Obstetrics History Last Filed Vital Signs Vital Sign Reading Time Taken Comments Blood Pressure 112/80 12/13/2024 3:59 PM CDT Pulse 91 12/13/2024 3:59 PM CDT Temperature 36.6 C (97.8 F) 12/13/2024 3:59 PM CDT Respiratory Rate 16 12/13/2024 3:59 PM CDT Oxygen Saturation 99% 12/13/2024 3:59 PM CDT Inhaled Oxygen Concentration - - Weight 59.9 kg (132 lb) 12/13/2024 3:59 PM CDT Height 170.2 cm (5' 7) 12/13/2024 3:59 PM CDT Body Mass Index 20.67 12/13/2024 3:59 PM CDT Plan of Treatment Health Maintenance Due Date Last Done Comments Hepatitis C Screening 1975 Hepatitis B Screening 09/22/1995 Breast Cancer Screening-Mammogram 12/14/2024 12/15/2023, 08/22/2023, 05/18/2021 Covid-19 Vaccine ( season) 2025 03/25/2021, 02/25/2021 Influenza Vaccine (#1) 2025 , 04/02/2020, 04/02/2019, Additional history exists Depression Screening 05/15/2025 05/15/2024, 03/20/2024, 02/20/2024, Additional history exists Regular Well Visit/Exam 18- 06/10/2025 06/10/2024, 07/06/2022, 01/12/2021 DTaP/Tdap/Td Vaccine (3 - Td or Tdap) 02/20/2028 02/19/2018, 02/19/2018 Colon Cancer Screening-Colonoscopy 08/03/2030 08/03/2020 Pneumococcal vaccine <65 Aged Out No longer eligible based on patient's age to complete this topic Goals Goal Patient Goal Type Associated Problems Recent Progress Patient-Stated? Author CCM Chronic Pain Care Plan Chronic Care Management No Gabbi Hill, RN Note: Problem: Chronic Pain Goals: 1. Minimize further functional decline 2. Maximize quality of life 3. Control pain Strategies: - Activity/exercise program recommendation - Conservative stepwise pain medicine strategy with multi-disciplinary approach - Recommend healthy lifestyle strategies and compensatory methods as needed Reduce the likelihood of falling Lifestyle No Gabbi Hill, RN Note: Below are four things you can do to prevent falls: Begin an exercise program to improve your leg strength & balance Ask your doctor or pharmacist to review your medicines Get annual eye check-ups & update your eyeglasses Make your home safer by: Removing clutter & tripping hazards Putting railings on all stairs & adding grab bars in the bathroom Having good lighting, especially on stairs Contact your local community or [facility] for information on exercise, fall prevention programs, or options for improving home safety. Procedures Procedure Name Priority Date/Time Associated Diagnosis Comments SCREENING MAMMOGRAM 2D BILATERAL Schedule Routine, Read Routine (OP Routine) 05/18/2021 COLONOSCOPY 08/03/2020 8:02 AM SNUFF CONTAINER INSPECTOR from Last 3 Months or Most Recently Relevant to Health Maintenance Results * Screening Mammogram 2D Bilateral (05/18/2021) Anatomical Region Laterality Modality Breast Bilateral Mammography Historical Provider MD AGRAWAL MAMMO PROCEDURES Neva l Result * COLONOSCOPY (08/03/2020 8:02 AM SNUFF CONTAINER INSPECTOR) Anatomical Region Laterality Modality Other Narrative Procedure Note Chirag Mckeon MD - 08/03/2020 8:02 AM CST [facility] Patient Name: Rosangela Flores Procedure Date: 08/03/2020 8:02 AM Date of : 1975 Admit Type: Outpatient Age: 44 Gender: Female Note Status: Finalized Attending MD: Chirag Mckeon M.D. Procedure Date: 08/03/2020 Procedure: Colonoscopy Indications: Hematochezia, Rectal pain Providers: Chirag Mckeon M.D., CATARINA Chance (Anesthesia Staff), Janessa Allen RN Referring MD: Arun Miller Medicines: Monitored Anesthesia Care Complications: No immediate complications. Estimated Blood Loss: Estimated blood loss: none. Procedure: Pre-Anesthesia Assessment: - Prior to the procedure, a History and Physicalwas performed, and patient medications and allergieswere reviewed. The patient is competent. The risks and benefits of the procedure and the sedation optionsand risks were discussed with the patient. Allquestions were answered and informed consent was obtained. Patient identification and proposed procedure were verified by the physician, the nurse and the entry level account manager in the procedure room. Mental Status Examination: alert and oriented. AirwayExamination: normal oropharyngeal airway and neck mobility. Respiratory Examination: clear to auscultation. CV Examination: normal. Prophylactic Antibiotics: The patient does not require prophylactic antibiotics. Prior Anticoagulants: The patient has taken no previous anticoagulant or antiplatelet agents. ASA Grade Assessment: I - A normal, healthy patient.After reviewing the risks and benefits, the patient was deemed in satisfactory condition to undergo the procedure. The anesthesia plan was to use monitored anesthesia care (MAC). Immediately prior to administration of medications, the patient was re-assessed for adequacy to receive sedatives. The heart rate, respiratory rate, oxygen saturations, blood pressure, adequacy of pulmonary ventilation,and response to care were monitored throughout the procedure. The physical status of the patient was re-assessed after the procedure. - The risks and benefits of the procedure and the sedation options and risks were discussed with the patient. All questions were answered and informed consent was obtained. After I obtained informed consent, the scope was passed under direct vision. Throughout theprocedure, the patient's blood pressure, pulse, and oxygen saturations were monitored continuously. The scopewas passed under direct vision. The Colonoscope was introduced through the anus and advanced to the the cecum, identified by appendiceal orifice andileocecal valve. The colonoscopy was performed without difficulty. The patient tolerated the procedurefairly well. The quality of the bowel preparation was adequate. The bowel preparation used was SUPREP via split dose instruction. Bowel prep was administered using a split dose. The colonoscopy was performed without difficulty. Findings: Non-bleeding internal hemorrhoids were found during retroflexion. The hemorrhoids were mild. A diminutive anal fissure was found in the anal canal. The exam was otherwise without abnormality. Impression: - Non-bleeding internal hemorrhoids. - Anal fissure. Healing. - The examination was otherwise normal. - No specimens collected. Recommendation: - Colace capsule(s) orally 100 mg daily. - Miralax 1 capful (17 grams) in 8 ounces of waterPO daily. - Repeat colonoscopy at age 52. Procedure Code(s): --- Professional --- 32483, Colonoscopy, flexible; diagnostic, including collection of specimen(s) by brushing or washing,when performed (separate procedure) Diagnosis Code(s): --- Professional --- K64.8, Other hemorrhoids K60.2, Anal fissure, unspecified K92.1, Melena (includes Hematochezia) K62.89, Other specified diseases of anus andrectum CPT copyright 2019 [employer]. All rights reserved. The codes documented in this report are preliminary and upon body straightener reviewmay be revised to meet current compliance requirements. Electronically signed by Chirag Mckeon M.D. Chirag Mckeon M.D. 08/03/2020 8:40:34 AM Number of Addenda: 0 Note Initiated On: 08/03/2020 8:02 AM Chirag Mckeon MD ENDOSCOPY PROCEDURES Fi nal Result from Last 3 Months or Most Recently Relevant to Health Maintenance Insurance [facility] Care Teams Director Of Broadcast Relationship Specialty Start Date End Date Arielle Olsen NP [address] [facility] [address] [place] [address] PCP - General Family Medicine 12/16/24
--- OUTSIDE RECORDS SUMMARY | 2025-04-30 15:36 | XMS_ITS | Data Portability ---
Author Organization [facility] [place] Address [address] [place] [address] [place] [address] Care Team Providers Care Personnel Records Clerk Name Role Phone STEPHANIE ZEE Primary Care Provider [phone] Assessment Encounter Date Assessment Date Assessment LastModified by Organization Details LastModified Time 08/15/2023 08/15/2023 Annual gynecological exam performed. Patient will come back in a year unless there are new symptoms. [email or web address] Not available 08/15/2023 11:37:24 Plan of Treatment Reminders Order Date Submit Date Provider Last Modified By Organization Details Last Modified Time Details Appointments None recorded. Lab None recorded. Referral pelvic floor therapy referral 2023 024 [email or web address] [facility], [address], [address], [place], [address], 4 12:39:09 Procedures None recorded. Surgeries None recorded. Imaging US, breast, bilateral, complete 2023 024 [email or web address] [facility], [address], [address], [place], [address], 4 11:22:26 MAMMO, screening, bilateral [facility] [address], [address], [place], [address], 4 15:20:39 Medication Orders estradiol 1 mg tablet 2023 024 [id number], [address], [place], [place], [id number], 11:08:47 estradiol 1 mg tablet 2023 [id number], [address], [place], [place], [id number], 12:03:34 Patient TargetsNo targets recorded. Patient InstructionsNo instructions recorded. Reason for Referral Pelvic Floor Therapy Referra l for Pelvic floor dysfunction Referring Physician: Valentina Burgess, TICKET COLLECTOR OR USHER, Encounter Date: 10/11/2023 Results Created Date Observation Date Name Description Value Unit Range Abnormal Flag Note LastModifiedBy Organization Detail LastModifiedTime 05/16/2005/16/2023 CULTU RE: URINE result report SEE RESULT S BELOW Test: Cultu re: Urine Speci men Sourc e: Urine Voide d Speci men Type: Urine Speci men Date: 05/16 4:37 PM Resul t Date: 05/18 5:36 AM Resul t Statu s: Final resul t Abnor mal: No Resul ting Lab: [facility] [address] [facility] [address] Tel: CULTU RE ----- ----- ----- --- No growt h in 1 day (dete ction level of 10,00 0 colon ies / ml.) Not Available [facility] (Lab) [address] [facility], [place], [address], 05/18/2023 06:41:33 08/15/19 24 08/15/2023 IMAGE GUIDE D PAP AND HPV REGAR DLESS image guided Pap, HPV regardless of Pap result SEE RESULT S BELOW CASE REPOR T: Cytol ogy Gynec ologi iron Repor t Case: [id number] Autho brianne g Provi nallely: Jaylan Morelos Colle cted: 08/15 1510 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 Elect kemi presley jules d by Kallie Barney, CT on 2023 at 10:45 AM ----- ----- ----- ----- ----- ----- ----- ----- ----- ----- ----- ----- ----- ----- ----- ----- ----- ---- HPV RESUL TS: HPV mRNA E6/E7 : No HPV mRNA Detec mavis NOTE: This high risk HPV mRNA assay detec ts fourt een high- risk HPV types (16, 18, 31, 33, 35, 39, 45, 51, 52, 56, 58, 59, 66, 68) witho ut diffe renti ation . COMME NT: Slide scree heidy ashley lly due to rejec tion by the Thinp rep Imagi ng Syste m. CLINI IRON INFOR MATIO N: Menst rual Statu s: LMP (if appli cable ): Clini iron Histo ry/Pr eviou s Pap: Type of Neopl lolis (if appli cable ): Signi fican t Clini iron Findi ngs: Other Histo ry: Hormo stefani (if appli cable ): PAP EDUCA CALE L NOTE: The Pap Test is a scree louann test with an inher ent false negat jace rate. Liqui d-bas ed sampl ing may decre ase, but will not elimi micaela, false negat jace resul ts. A negat jace resul t does not precl ude the prese nce and/o r devel opmen t of disea se, since the prese nce of abnor mal cells in the sampl e depen ds on the locat ion of the lesio n and sampl ing techn ique. Pritesh nued regul ar scree louann is the best metho d of cance r preve ntion . If repor mavis cytol ogic findi ng do not corre late with physi iron and/o r histo rical findi ngs, furth er inves tigat ion is recom barrington d, as clini luciana warra nted. Not Available [facility] (Lab) [address], [place], [address], 08/21/2023 11:49:42 08/22/19 24 08/22/2023 MAMMO , scree louann, bilat eral No observ ation record ed. [facility] [facility] [address], [place], [address], 10/11/2023 12:08:53 12/15/19 24 12/15/2023 MAMMO , scree louann, bilat eral No observ ation record ed. [facility] [address], [place], [address], 12/24/2023 17:13:48 08/27/19 25 08/27/2024 imagi ng/di agnos tic resul t No observ ation record ed. [facility] [address], [place], [address], 08/28/2024 17:22:52 10/19/19 25 10/18/2024 US, breas t, unila teral No observ ation record ed. [facility] [address], [place], [address], 10/20/2024 10:42:36 Result Notes None recorded. 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 11:55:08 Problem Notes None recorded. Procedures Surgical History Date Name Laterality Status Provider Name and Address Organization Details Recorded Time 08/22/19 24 Date of Last Mammogram completed Sobeida Oquendo [facility] 10/11/2023 11:37:26 08/15/19 24 Date of Last Pap Smear completed Sobeida Oquendo [facility] 10/11/2023 11:36:30 06/11/20 23 OOPHORECTOMY (SURG) completed YOSSI Schmitz- [address], [place], [address], [facility] 08/15/2023 12:24:54 05/10/20 23 Total Hysterectomy completed Sobeida Oquendo [facility] 08/15/2023 11:44:21 05/30/20 22 Endometrial Ablation with Hysteroscopy completed Korey Nance MD [address], [place], [address], [facility] 05/30/2022 16:27:25 05/30/20 22 Endometrial Ablation completed Sophia Pena [facility] 05/30/2022 10:14:19 08/03/19 21 Colonoscopy completed Moraima Adair [facility] 09/12/2020 09:41:31 07/03/19 14 augmentation mammoplasty completed Florence Maloney [facility] 03/23/2023 10:04:01 07/03/19 03 LEEP completed Florence Maloney [facility] 03/23/2023 10:04:23 07/03/19 03 Tonsillectomy completed Florence Maloney [facility] 03/23/2023 10:04:28 Imaging Results None recorded. Procedure Notes None recorded. Medical Equipment None Reported. Allergies No known drug allergies Medications Name Sig Start Date Stop Date Status Note LastModified by Organization Details LastModified Time digestive enzymes capsule 10/10 completed Not Available Not Available Not Available prednison e 10 mg tablet 04/27 completed Not Available Not Available Not Available ibuprofen 800 mg tablet TAKE 1 TABLET BY MOUTH 2 HOURS BEFORE THE PROCEDUR E 06/09 completed Not Available Not Available Not Available hydrocodo ne 5 mg-acetam inophen 325 mg tablet TAKE 1 TABLET BY MOUTH EVERY 6 HOURS NEEDED FOR PAIN 09/12 completed Not Available Not Available Not Available ondansetr on HCl 8 mg tablet TAKE 1 TABLET BY MOUTH 2 HOURS BEFORE THE PROCEDUR E 06/09 completed Not Available Not Available Not Available Anucort-H C 25 mg supposito ry UNWRAP AND INSERT 1 SUPPOSIT ORY RECTALLY TWICE DAILY NEEDED FOR HEMORRHO IDS. TAKE PRIOR TO PROCEDUR E DIRECTED 03/23 completed Not Available Not Available Not Available ciproflox acin 500 mg tablet TAKE 1 TABLET BY MOUTH EVERY 12 HOURS 08/15 completed Not Available Not Available Not Available hydrocodo ne 10 mg-acetam inophen 325 mg tablet TAKE 1 TABLET BY MOUTH 2 HOURS BEFORE THE PROCEDUR E 06/09 completed Not Available Not Available Not Available oxycodone -acetamin ophen 5 mg-325 mg tablet TAKE 1 TABLET BY MOUTH EVERY 4 HOURS NEEDED FOR PAIN 08/15 completed Not Available Not Available Not Available alprazola m 0.5 mg tablet TAKE 1 TABLET BY MOUTH 2 HOURS BEFORE THE PROCEDUR E 06/09 completed Not Available Not Available Not Available estradiol 1 mg tablet TAKE 1 TABLET BY MOUTH EVERY DAY WITH FOOD 2023 active Not Available Not Available Not Avai lable Proctozon e-HC 2.5 % topical cream perineal applicato r 09/12 completed Not Available Not Available Not Available Multiple Vitamins tablet active Prescrib ed Elsewher e: Yes [facility] M odify By: bacilio Jarrett claribel DateTime : 07/12/19 09:00:00 AM Not Available Not Available Not Available docusate sodium 100 mg capsule TAKE ONE CAPSULE BY MOUTH TWICE DAILY 03/23 completed Not Available Not Available Not Available vitamin E 268 mg (400 unit) capsule Take 1 capsule every day by oral route. 04/27 completed Not Available Not Available Not Available Stool Softener 04/27 completed Not Available Not Available Not Available Probiotic active Not Available Not Janet ilable Not Available Suprep Bowel Prep Kit 17.5 gram-3.13 gram-1.6 gram oral solution 09/12 completed Not Available Not Available Not Available Fiber Gummies 2.5 gram chewable tablet 04/27 completed Not Available Not Available Not Available Rectiv 0.4 % (w/w) ointment INSERT 1 APPLICAT ION INTO THE RECTUM EVERY 12 HOURS 09/12 completed Not Available Not Available Not Available Multi Vitamin 09/08 completed Not Available Not Available Not Available Vitals Date Recorded Body height Body mass index (BMI) Body weight Systolic And Diastolic Provider Name and Address Organization Details Last Updated DateTime 08/15/2023 166.37 cm 22 kg/m2 54198.38 g 104/67 mm[Hg] [facility] 08/15/2023 11:38:33 Date Recorded Body height Body mass index (BMI) Body weight Systolic And Diastolic Provider Name and Address Organization Details Last Updated DateTime 10/11/2023 166.37 cm 21.6 kg/m2 32252.19 g 106/67 mm[Hg] [facility] 10/11/2023 11:35:19 Date Recorded Body height Body mass index (BMI) Body weight Systolic And Diastolic Provider Name and Address Organization Details Last Updated DateTime 01/08/2024 166.37 cm 21.3 kg/m2 47339.01 g 117/76 mm[Hg] [facility] 01/08/2024 10:38:08 Date Recorded Body height Body mass index (BMI) Body weight Systolic And Diastolic Provider Name and Address Organization Details Last Updated DateTime 05/16/2023 166.37 cm 22 kg/m2 33167.38 g 113/75 mm[Hg] Sophia Pena [facility] 05/16/2023 14:31:01 Social History Question Answer Notes LastModified by Organizat ion Details LastModified Time Tobacco Smoking Status Never Smoker Sophia Pena [facility] 05/16/2023 14:31:13 Do You Have An Advance Directive? No Information n ot available 04/27/2022 If You Are , What Was Your Level Of Alcohol Consumption Prior To ? None Information not available 05/16/2023 Are You Blind Or Do You Have Difficulty Seeing? No Information n ot available 04/27/2022 What Is Your Level Of Caffeine Consumption? Occasional Information not available 09/12/2020 How Much Tobacco Do You Chew? None Information not available 04/27/2022 In The 14 Days Before Symptom Onset, Have You Had Close Contact With A Laboratory-confirm ed COVID-19 While That Case Was Ill? No Information n ot available 04/27/2022 In The 14 Days Before Symptom Onset, Have You Had Close Contact With A Person Who Is Under Investigation For COVID-19 While That Person Was Ill? No Information not available 04/27/2022 Have You Been To An Area Known To Be High Risk For COVID-19? No Information not available 04/27/2022 Are You Deaf Or Do You Have Serious Difficulty Hearing? No Information not available 04/27/2022 What Type Of Diet Are You Following? REGULAR Information n ot available 04/27/2022 What Is The Highest Grade Or Level Of School You Have Completed Or The Highest Degree You Have Received? [id number] Information not available 04/27/2022 Are There Any Guns Present In Your Home? No Information not available 04/27/2022 Have You Ever Been Counseled For Unhealthy Alcohol Use? No Information not available 05/16/2023 Do You Use Protection During Sex? No Information not available 04/27/2022 Do You Use Your Seat Belt Or Car Seat Routinely? Yes Information not available 04/27/2022 Do You Have Smoke And Carbon Monoxide Detectors In Your Home? Yes Information not available 04/27/2022 How Much Tobacco Do You Smoke? No Information not available 04/27/2022 Do You Use Sunscreen Routinely? Yes Information not available 04/27/2022 Has Tobacco Cessation Counseling Been Provided? No Information not available 05/16/2023 Have You Used IV Drugs? No Information not available 04/27/2022 Do You Have Difficulty Walking Or Climbing Stairs? No Information not available 05/16/2023 Sex: Female Functional Status Question Answer Note LastModified by Organizat ion Details LastModified Time Do you use any illicit or recreational drugs? No Information not available 09/12/2020 Do you or have you ever used any other forms of tobacco or nicotine? No Information not available 05/16/2023 What is your level of alcohol consumption? Occasional Information not available 09/12/2020 Are you able to walk independently without assistance or assistive devices? YESWOREST Information not available 04/27/2022 Are you able to care for yourself independently? 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 No Information not available 05/16/2023 What is your exercise level? Moderate Information not available 04/27/2022 Mental Status Question Answer Note LastModified by Organization D etails LastModified Time Do you feel stressed (tense, restless, nervous, or anxious, or unable to sleep at night)? [id number] Information not available 04/27/2022 Family History Relationship Description Onset Age of this Age Resolved Age Notes LastModified by Organization Details LastModified Time Brother Psychotic disorder [email or web address] Not available 2023 10:12:36 Mother Psychotic disorder [email or web address] Not available 2023 10:12:36 Mother Hypertensive disorder [email or web address] Not available 2020 08:55:04 Mother Cyst of ovary Not available 2023 10:12:36 Maternal Grandfather Carcinoma in situ of lung [email or web address] Not available 02/2024 10:12:36 Maternal Grandmother Carcinoma in situ of colon [email or web address] Not available 2023 10:12:36 Maternal Grandmother Hypertensive disorder [email or web address] Not available 2020 08:55:04 Paternal Aunt Carcinoma in situ of breast [email or web address] Not available 2023 10:12:36 Paternal Grandfather Hypercholest erolemia [email or web address] Not available 2020 08:55:41 Medical History Condition Response Allergies (Food, seasonal, environmental ) N Other N Breast Cancer N Drug/Latex Allergies/Reactions N Blood Transfusion N Dermatologic Disorders N Lung Disease N Defects or Inherited Disease N Breast Problem Y Gestational Diabetes N Hematologic disorders N Anesthesia Complications N History of STI N Deep Vein Thrombosis N Polycystic ovary syndrome N Anxiety Disorder N Autoimmune disease N Arthritis N Infertility N Polyps N Acid Reflux (GERD) N History of abnormal pap N Cancer N Stroke N Varicosities N Neurologic/Epilepsy N Endometriosis N High Cholesterol N Headaches N Fibromyalgia N Kidney Disease N Heart Problems N Kidney or Bladder Problems N Thyroid Problems N GI Problems Y Eating Disorder N Anemia N Art (IVF or FET) N Psychiatric Illness N Ovarian Cancer N Diabetes N Pulmonary (TB, Asthma) N Hepatitis/Liver Disease N No Past Medical History N Eczema N Urinary Tract Infection N Abuse/Domestic Violence N Asthma N Trauma/Violence N Depression/ depression N Heart Disease N Pre-Eclampsia N Hypertension N Osteoporosis N Thrombophilias N Gynecological History Statement/Question Response Date of Last Mammogram 08/22/2023 Flow Heavy Date of LMP 03/11/2023 On BCP's at Conception? N N Was last menstrual period normal N STIs/STDs N HPV Vaccine N Duration of Flow (days) 5 Current Control Method Hysterectom y Are cycles usually normal N Date of Last Colonoscopy Sexually Active? Y Menses Monthly N Age of first menstrual cycle 16 Date of Last Pap Smear 08/15/2023 Sexual Problems? N Desired Control Method Ablation LMP Definite N Obstetrics History GPAL:G 3 P 3 0 0 3 Type Value Full Term 3 Living 3 Total 3 Past Encounters Encounter ID Performer Location Encounter Start Date Encounter Closed Date Diagnosis/Indication Diagnosis SNOMED-CT Code Diagnosis ICD10 Code Diagnosis IMO Codes Diagnosis Note [id number] Valentina Burgess [facility] [address] [address] 03/10/2020 14:10:24 03/12/2020 12:38:30 Mass of right breast [id number] 0840975 N63.10 We agreed to pursue imaging based on today's exam & patient subjective complaints . Will await report for further steps in POC. Time spent in visit is a total of 17 mins with at least 50% of visit consisting of counseling and review of plan of care. [id number] Valentina Burgess [facility] [address],[place] [address] 09/12/2020 09:29:23 09/12/2020 10:15:27 Gynecologic examination [id number] Z01.419 Suggested Calcium with Vitamin D 1200-1500m g daily. Patient advised to get an annual flu shot in the fall and she could obtain at [facility] or [facility] clinic. Also to obtain TDap vaccinatio n if you have not had one in the last 10 years. Recommend yearly mammograms . Encouraged monthly self breast exams. Encourage safe sexual practices, to use condoms and limit partners if not already in a monogamous relationsh ip. Engage in daily exercise of low impact aerobic exercise 45-60 minutes 4-5 times weekly. Avoid tobacco and illicit drugs as well as using moderation with alcohol intake less than 1-2 8 oz beverages daily. This lifestyle behavior pattern will lead to less health conditions and longer life span. If BMI greater than 25 weight watchers or dietary consult advised. All questions have been answered. Patient appears to understand informatio n, but if you have any questions please call or respond to this email. Pap/hpv sent Hx leep 2003 with normal pap/hpv screenings since this time. Monogamous partner Mammo ordered No issues or concerns this year. [id number] Valentina Burgess [facility] [address],[facility] [place] [address] 04/27/2022 09:38:51 04/27/2022 10:50:06 Gynecologic examination 99199405 Z01.419 Suggested Calcium with Vitamin D 1200-1500m g daily. Patient advised to get an annual flu shot in the fall and she could obtain at [facility] or [facility] take care clinic. Also to obtain TDap vaccinatio n if you have not had one in the last 10 years. Recommend yearly mammograms . Encouraged monthly self breast exams. Encourage safe sexual practices, to use condoms and limit partners if not already in a monogamous relationsh ip. Engage in daily exercise of low impact aerobic exercise 45-60 minutes 4-5 times weekly. Avoid tobacco and illicit drugs as well as using moderation with alcohol intake less than 1-2 8 oz beverages daily. This lifestyle behavior pattern will lead to less health conditions and longer life span. If BMI greater than 25 weight watchers or dietary consult advised. All questions have been answered. Patient appears to understand informatio n, but if you have any questions please call or respond to this email. Pap/hpv sent STD Screen declined Genetic Screen discussed Colon Screen na Dexa Screen na Routine Labs orderedMam mo ordered Menorrhagia [id number] N9 2.0 Today we agreed to updated US & labs.Addit ional labs to assess anemia added for more heavy, frequent cycles that are increasing fatigue.Wi ll f/u to discussAwa re results might indicate need for MD consult. Will refer if necessary. [id number] Korey Nance MD [place] [address] [address] 04/29/2022 10:31:44 04/29/2022 13:39:02 Menorrhagia 059877797 N92.0 [id number] YOSSI Sch[facility] [address] [address] 05/04/2022 16:44:49 05/04/2022 17:25:18 Menorrhagia 457196177 N92.0 N83.209 US reviewedNo sx's currently regarding pain/disco mfort.Cont inues to have menorrhagi a since July 2021-perim enopause.M onitor ovarian cyst-updat e US if becomes symptomati c. consult for endo-ablat ion as not interested in hormonal options (spouse has vasectomy) . Time spent in visit is a total of 15 mins with at least 50% of visit consisting of counseling and review of plan of care. [id number] Korey Nance MD [place] [address],[place] [address] 05/14/2022 09:22:30 05/14/2022 10:35:49 Menorrhagia 242611731 N92.0 This patient is a 46-year-ol d female presents for heavy vaginal bleeding. She has longstandi ng very heavy bleeding. Her menses are regular. However, they require double protection . Patient has accidents, getting blood on her bedding and clothing. Is affected work. She changes a pad or tampon every hour. She leaks blood around the pad and tampon. This bleeding has a profound impact on her quality of life and her activities of daily living. discussed treatment options in detail with the patient. The patient is in should endometria l ablation. Talked about the setting in which endometrio sis performed. We talked about the procedure itself. We reviewed an a animations in of the procedure that shows detail about works. We spent over 40 minutes face-to-fa ce. More than 50% was counseling . We agreed to perform endometria l ablation. She has considered medical options and has failed them in the past. Preoperative state 00181 002 Z78.9 [id number] Korey Nance MD [place] [address] [address] 05/30/2022 09:41:43 05/30/2022 18:00:27 Screening procedure 54611239 Z13.9 Menorrhagia 614041354 N9 2.0 endometria l ablation was performed. She tolerated the procedure well. [id number] MD Catherine Henry [address] [address] 06/09/2022 17:18:22 06/09/2022 17:47:35 Menorrhagia [id number] N92.0 this patient is a 46-year-ol d female presents follow-up on menorrhagi a. It is 10 days after endometria l ablation. She is doing very well. She has some watery vaginal discharge but that is all. No foul-smell ing discharge. No nausea vomiting fever or chills. Will follow-up as needed. [id number] Valentina Burgess , [facility] [address],[place] [address] 03/23/2023 09:51:30 03/23/2023 10:34:00 Abnormal uterine bleeding [id number] 9100 N93.9 Hx of Endometria l ablationR/ O hematometr a as well due to Hx of ablation The patient and I discussed the various causes of abnormal uterine bleeding, including polyps, fibroids, hyperplasi a, atypia, anovulatio n, etc. We reviewed the typical evaluation with labs, pelvic US and possible endometria l biopsy. Briefly discussed the options available for treatment (depending on the results of evaluation ) such as hormonal treatment (OCPs, progestins ), Mirena, endometria l ablation, and surgery. We spent more than 30 minutes face to face.Decli heidy need std screen F/U in person or virtual to discuss results/PO C Urgent jessa jose to urinate [id number] R39.15 Weak PFM which likely contribute s to the frequency as other previous urine dips neg/GI told her weak floor muscles this year as well. Rec PTReferral givenWill call [id number] Korey Nance MD [facility] [address],[place] [address] 03/28/2023 12:25:49 03/28/2023 13:43:39 Abnormal uterine bleeding [id number] 9100 N93.9 R10.2 [id number] Valentina Burgess , [facility] [address],[place] [address] 03/29/2023 12:17:51 03/29/2023 13:21:24 Pain in pelvis [id number] R10.2 Today we reviewed US.Chelo magallanes answered.S tico she is still very symptomati c with pain on the left side she requested an MD consult to further discuss.Hx of endometria l ablation-l ining 5mm at this time.Neg family hx Ovarian cancer/glenis ast/uterin e Will reach out with labs once they return. Patient is to contact office or go to nearest ED/Urgent care if fever >/= 100.1, pain, excessive bleeding, unusual drainage or swelling in area of concern; or experienci ng worsening sx's or new onset of concerning sx's. Understand ing verbalized . All questions answered to patient satisfacti on. Total time of virtual-ZO OM visit was approx 15mins with >50% consisting of counseling , education of patient's plan of care. [id number] Korey Nance MD [facility] [address],[place] [address] 04/03/2023 11:57:26 04/03/2023 15:40:00 Pain in pelvis [id number] R10.2 Menorrhagia [id number] N9 2.0 this patient is a 47-year-ol d female with severe menorrhagi a and pelvic pain. She has left-sided pelvic pain. She has a history of ovarian cysts on the left side. She has some increased vascularit y on the left side of her pelvis as well. Pelvic ultrasound revealed prominent adnexal varices. Reviewed those images together today. She has an endometria l ablation. Appears this endometria l ablation is failed. She has had the return of heavy vaginal bleed patient has pain with intercours e. She has pain with movement. It affects her quality of life and a affects her activities of daily living. We talked about treatment options in detail. She has failed medica and procedures treatments we talked about hysterecto my in detail. Talked about recovery, technical aspects, risk. She is likely to go forward with hysterecto my with bilateral salpingect mark and left oophorecto my. Spent 40 minutes face-to-fa ce. More than 50% was counseling . Made a decision to perform surgery is centrally patient to call back confirm s surgery scheduling [id number] Korey Nance MD [facility] [address] [address] 05/01/2023 12:28:28 05/02/2023 09:20:21 Menorrhagia [id number] N92.0 this patient is a 47-year-ol d female with severe menorrhagi a. We have agreed to perform total laparoscop ic hysterecto my with bilateral salpingect mark and left oophorecto my. She understand s risks, benefits, and alternativ es. She is completed the informed consent process and is ready to proceed. [id number] Korey Nance MD [facility] [address] [address] 05/16/2023 14:22:30 05/16/2023 14:49:19 Postoperative care [id number] Z48.89 female Patient presents for postop follow-up. She is 1 week postop from a total laparoscop ic hysterecto my bilateral salpingect mark. She has no complaints . Her incisions are clean dry and intact. She is recovering normally. She will follow-up as needed. [id number] Korey Nance MD [facility] [address],[facility] [place] [address] 06/08/2023 10:35:01 06/14/2023 03:54:24 [id number] Valentina Burgess [facility] [address],[facility] [place] [address] 08/15/2023 11:29:03 08/15/2023 12:35:48 Gynecologic examination [id number] Z01.419 Z11.51 Suggested Calcium with Vitamin D 1200-1500m g daily. Patient advised to get an annual flu shot in the fall and she could obtain at [facility] or [facility] clinic. Also to obtain TDap vaccinatio n if you have not had one in the last 10 years. Recommend yearly mammograms . Encouraged monthly self breast exams. Encourage safe sexual practices, to use condoms and limit partners if not already in a monogamous relationsh ip. Engage in daily exercise of low impact aerobic exercise 45-60 minutes 4-5 times weekly. Avoid tobacco and illicit drugs as well as using moderation with alcohol intake less than 1-2 8 oz beverages daily. This lifestyle behavior pattern will lead to less health conditions and longer life span. If BMI greater than 25 weight watchers or dietary consult advised. All questions have been answered. Patient appears to understand informatio n, but if you have any questions please call or respond to this email.Pap/ hpv sentSTD Screen declinedGe netic Screen discussedC olon Screen naDexa Screen naRoutine Labs orderedMam mo ordered Screening mammography 24 [id number] Z12.31 Vaginal gr anulation tissue [id number] N89.8 Will monitor for nowConside r applicatio n silver nitrate and f/u with estradiol cream vaginal if needed.Addison l reach out in 3mos or sooner if any changes. [id number] YOSSI [facility] [address] [address] 10/11/2023 11:26:31 10/11/2023 12:25:45 Breast lump [id number] N63.0 Right breast displays palpable crease on the out quadrant of the right breast.Unc ertain this is an issue or not; but it is more difficult to detect ruptures with silicone breast implants so we agreed on updated breast US.Previou s mammo screenings are wnl Time spent in visit is a total of 30 mins with at least 50% of visit consisting of counseling and review of plan of care. Perimenopa usal disorder [id number] N95.9 We discussed Menopausal Hormone therapy (MHT) for women with intact uterus with the goals of reliving vaso-motor sx's using estrogen/p rogestin therapy (EPT) using lowest doses for shortest duration in women 40-59yo. Contraindi cations include: Hx of DVT or thrombolic events, High cholestero l, Hx of breast cancer, known CHD, active liver disease, unexplaine d vag bleeding, high risk endometria l cancer, TIA. Side effects can include but are not limited to: Irregular vag bleeding,, breast tenderness , nausea, weight changes, libido changes, nausea. Adverse Rxn: Elevated BP migraine w/ visual changes, breast cancer dx, VT/stroke, DVT/PE, Endometria l cancer. Please contact office with any new or worsening side effects or adverse reactions. Or if a medical emergency please go to nearest ED/Urgency care for further evaluation . Hysterecto my--only estradiol added todayRTO x 3mosH/O's given for additional home review Pelvic ravindra or dysfunction [id number] M62.9 Encouraged pelvic floor PT for constipati on/inconti nence issues/pel dev floor dysfunctio n.Open to this recommenda tionInform ation discussed and referral printed.If the location referred too does not take her insurance [facility] or [facility] are also options. [id number] Korey Nance MD [facility] [address] [address] 01/08/2024 10:12:27 01/08/2024 11:19:14 Perimenopausal state [id number] 77427 Z78.0 This patient is a 48-year-ol d female presents for follow-up on hormone replacemen t therapy. She reports menopausal / perimenopa usal symptoms. She reports fatigue, hot flashes, night sweats. She was treated with estradiol. She is following up on us withdrawal treatment. She reports very significan t improvemen t and satisfacti on with the medication . I talked to her about medication . Talked about the risks, precaution s. We gave her instructio ns. The medication s were prescribed . She will follow up in 1 year for hormone replacemen t therapy. We discussed risks benefits and alternativ es to hormone replacemen t therapy Health Concerns Section Related Observation LastModified by Organization Detai ls LastModified Time None Recorded Concern Status LastModified by Organization Details LastModified Time None Recorded Advance Directives Directive N: Payers Insurance Date Sequence Insurance Name Policy Number Policy Han Covered Member ID Han Member ID Guarantor Name 01/05/2024 1 [employer] [id number] Rosangela Flores [id number] Rosangela Flores 04/10/2023 1 [facility] ( - P[place]) Jaswinder Flores [id number] Rosangela Flores 01/10/2024 1 [place] [id number] Jaswinder Flores [id number] Rosangela Flores 01/05/2024 2 [facility] [id number] Rosangela Flores [id number] Rosangela Flores 01/05/2024 1 [facility] [id number] Rosangela Flores [id number] Rosangela Flores Notes Date Note Type Note Provider Name and Address Organization Details Recorded Time 05/16/20 23 text/ht ml female Patient presents for postop follow-up. She is 1 week postop from a total laparoscopic hysterectomy bilateral salpingectomy. She has no complaints. Her incisions are clean dry and intact. She is recovering normally. She will follow-up as needed. Korey Nance MD [address], [place], [address], [facility] 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 For vaginal bleeding, patient reportshistory of menopause having occurredandno history of post menopausal bleeding. For urinary symptoms, patient reportsno hematuria,no incontinence,no nocturia, andno urinary frequency. For vulva, patient reportsno genital lesionandno vulvar atrophy. For vagina, patient reportsnormal vaginal dischargeandno vaginal atrophy.Breast symptomsFor breast, patient reportsno breast lump,no nipple discharge, andno breast pain.Psychological symptomsFor sexual complaints, patient reportsno sexual complaints. For psychological symptoms, patient reportsno depressionandno anxiety.Preventative measuresFor preventive measures, patient reportsencourage regular mammograms starting age 40,encourage self breast examination,encourage regular exercise,encourage no tobacco use,needs to schedule mammogram, andneeds to schedule colonoscopy. Valentina Burgess [facility]- [address], [place], [address], [facility] 08/15/2023 12:29:50 10/11/19 24 text/ht ml Breast ProblemsReported by PatientHPIFor location, patient reportsright (crease/line in outer quadrant of right breast without other sx's present). For onset/timing, patient reports2-4 weeks. For quality, patient reportsasymptomatic,no bloody discharge,no brown discharge,no milky discharge,no yellow-clear discharge,no yellow-green discharge,non-tender,improving, andno mass. For context, patient reportsprior mammogram normal,performs breast self-examination,no family history of breast cancer,no history of breast cancer,no radiation treatment,no chemotherapy,no cancer,no previous biopsies,no miscarriages,recent mri normal,lymph node status negative,breast implants silicone,premenopausal, andno current estrogen use. For modifying factors, patient reportsno recent change in exercise habits,no recent changes in weight,no recent changes in diet, andno recent changes in medication dosage of hormone replacement therapy. For aggravating factors, patient reportsnone. For associated symptoms, patient reportsno fever,no chills,no breast reddening,no nipple discharge,no sore nipples,no nipple inversion,breasts feel normal,no breast swelling,no arm pain,no arm swelling,no chest pain,no malaise,no breast lump, andno change in breast skin. MenopauseReported by PatientMenopauseFor associated symptoms, patient reportsirritabilitybut reportsno abdominal pain,no pelvic pain,no abnormal bleeding,no vaginal discharge,no dysuria,no dispareunia,no changes in bowel function,no fever,no vaginal dryness,no depression,no anxiety,no skin changes,no loss of libido, andno changes in urination. For onset/timing, patient reports6-12 months,morning,afternoon, andevening. For quality, patient reportsnight sweats,sleep issues,mood changes,hot flashes __, andaffects quality of life. For severity, patient reportsmoderateandinterferes with sexual activity. For duration, patient reportsintermittent. For context, patient reportsrecent gynecologic surgery (hysterectomy in may 2024). For alleviating factors, patient reportsexerciseandincreased rest. For aggravating factors, patient reportspoor sleep,heat, andstress.ROS as noted in the HPI Valentina Burgess, [facility]- [address], [place], [address], [facility] 10/11/2023 12:12:25 01/08/20 24 text/ht ml This patient is a 48-year-old female presents for follow-up on hormone replacement therapy. She reports menopausal / perimenopausal symptoms. She reports fatigue, hot flashes, night sweats. She was treated with estradiol. She is following up on us withdrawal treatment. She reports very significant improvement and satisfaction with the medication. I talked to her about medication. Talked about the risks, precautions. We gave her instructions. The medications were prescribed. She will follow up in 1 year for hormone replacement therapy. Korey Nance MD [address], [place], [address], [place] [facility] 01/08/2024 11:19:03 OBGyn Episode Ob Episode Information Episode Created Date Number of Fetuses Patient Bloodtype Patient rh Status Prepregnancy Weight lbs Domestic Partner Domestic Partner Phone Father Name Food Service Aide Status 09/13/19 21 1 CLOSED Fetus Data First Name Last Name Admitted to NICU Weight (g) Sex Living Outcome Pediatric Complications Fetus ID Race Codes Race Delivery Type F Full Term 8455 Vaginal Delivery Eduin Calculation Initial Eduin Date Initial Exam Date Initial Exam Provider Initial Ultrasound Date Last Menstrual Period Date Ultra Sound Weeks Gestation 0 Eighteen To Twenty Week Eduin Update Ultra Sound Date Fundal Height At Umbil Quickening Date Ultra Sound Latest Weeks Gestation Final Eduin Confirmed By Final Eduin Confirmed Date Final Eduin Date Ultra Sound Latest Days Gestation 0 0 Menstrual History Last Menstrual Date Menses Monthly On Bcp Conception Prior Menses Frequency Hcg Plus Date Menarche Onset Age Delivery Information Delivery Date Delivery Type Labor Anesthesia Weeks Gestation Incision Type Labor Labor Length Hrs Delivered By Post Complications Tubal Sterilization Discharge Date Comments 8 Discharge Information Feeding Method Contraceptive Method Maternal HG B and HCT Levels Ob Episode Information Episode Created Date Number of Fetuses Patient Bloodtype Patient rh Status Prepregnancy Weight lbs Domestic Partner Domestic Partner Phone Father Name Food Service Aide Status 09/13/19 21 1 CLOSED Fetus Data First Name Last Name Admitted to NICU Weight (g) Sex Living Outcome Pediatric Complications Fetus ID Race Codes Race Delivery Type Full Term 8454 Vaginal Delivery Eduin Calculation Initial Eduin Date Initial Exam Date Initial Exam Provider Initial Ultrasound Date Last Menstrual Period Date Ultra Sound Weeks Gestation 0 Eighteen To Twenty Week Eduin Update Ultra Sound Date Fundal Height At Umbil Quickening Date Ultra Sound Latest Weeks Gestation Final Eduin Confirmed By Final Eduin Confirmed Date Final Eduin Date Ultra Sound Latest Days Gestation 0 0 Menstrual History Last Menstrual Date Menses Monthly On Bcp Conception Prior Menses Frequency Hcg Plus Date Menarche Onset Age Delivery Information Delivery Date Delivery Type Labor Anesthesia Weeks Gestation Incision Type Labor Labor Length Hrs Delivered By Post Complications Tubal Sterilization Discharge Date Comments 1 Discharge Information Feeding Method Contraceptive Method Maternal HG B and HCT Levels Ob Episode Information Episode Created Date Number of Fetuses Patient Bloodtype Patient rh Status Prepregnancy Weight lbs Domestic Partner Domestic Partner Phone Father Name Food Service Aide Status 09/13/19 21 1 CLOSED Fetus Data First Name Last Name Admitted to NICU Weight (g) Sex Living Outcome Pediatric Complications Fetus ID Race Codes Race Delivery Type F Full Term 8456 Vaginal Delivery Eduin Calculation Initial Eduin Date Initial Exam Date Initial Exam Provider Initial Ultrasound Date Last Menstrual Period Date Ultra Sound Weeks Gestation 0 Eighteen To Twenty Week Eduin Update Ultra Sound Date Fundal Height At Umbil Quickening Date Ultra Sound Latest Weeks Gestation Final Eduin Confirmed By Final Eduin Confirmed Date Final Eduin Date Ultra Sound Latest Days Gestation 0 0 Menstrual History Last Menstrual Date Menses Monthly On Bcp Conception Prior Menses Frequency Hcg Plus Date Menarche Onset Age Delivery Information Delivery Date Delivery Type Labor Anesthesia Weeks Gestation Incision Type Labor Labor Length Hrs Delivered By Post Complications Tubal Sterilization Discharge Date Comments 0 Discharge Information Feeding Method Contraceptive Method Maternal HG B and HCT Levels
--- OUTSIDE RECORDS SUMMARY | 2025-04-30 15:36 | XMS_ITS | Clinical Summary ---
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 Gender Identity Not on file Sexual Orientation Not on file Plan of Treatment Health Maintenance Due Date Last Done Comments Hepatitis C Virus (HCV) Screening 1977 TdaP Immunization 1977 Hepatitis B Immunization (1 of 3 - 19+ 3-dose series) 1996 Pap Smear 1998 Cervical Cancer Screening (CCS) 09/22/2007 HPV/Cotest 09/22/2007 Cologuard 2022 Colonoscopy 2022 Colorectal Cancer Screening 2022 Immunochemical Fecal Occult Blood 2022 Influenza Immunization (#1) 2025 SARS-COV-2 Immunization ( season) 2025 Respiratory Syncytial Virus (RSV) Immunization (Adult) (1 - 1-dose 75+ series) 2052 Human Papillomavirus (HPV) Immunization Aged Out No longer eligible b ased on patient's age to complete this topic Meningococcal Immunization (ACWY) Aged Out No longer eligible based on patient's age to complete this topic Pneumococcal Immunization Combined Aged Out No longer eligible based on patient's age to complete this topic Rotavirus Immunization Aged Out No lo nger eligible based on patient's age to complete this topic
--- OUTSIDE RECORDS SUMMARY | 2025-04-30 15:36 | XMS_ITS | Clinical Summary ---
Author Organization [facility] Address [address] 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 This disclosure is being madepursuant to the Care Everywhere program and may not contain all information available regarding this patient. Last updated 18.[facility] Allergies No known active allergies Immunizations Immunization Administration Dates Next Due TDAP (7yrs+) 02/19/2018 Social History Tobacco Use Types Packs/Day Years Used Date Smoking Tobacco: Never Assessed Comments Unknown Sex and Gender Information Value Date Recorded Sex Assigned at Not on file Legal Sex Female 9:42 AM CDT Gender Identity Not on file Sexual Orientation Not on file Plan of Treatment Health Maintenance Due Date Last Done Comments COLOGUARD (AGES 45-75) - COL ON CA SCREENING 1977 COLON MONITORING 1977 COLONOSCOPY - COLON CA SCREENING 1977 CT COLONOGRAPHY - COLON CA SCREENING 1977 Colorectal Cancer Screening 1977 FIT - COLON CA SCREENING 1977 FLEX SIG - COLON CA SCREENING 1977 LIPID TESTING 1977 MAMMOGRAM 1977 HIV SCREENING 1992 HEPATITIS C SCREENING 09/17/1995 HEPATITIS B VACCINE (1 of 3 - 19+ 3-dose series) 1996 PAP SMEAR 1998 DEPRESSION SCREENING 07/03/2024 COVID-19 VACCINE (1 - 2023-2 5 season) 2025 INFLUENZA VACCINE (#1) 2025 ZOSTER VACCINE (1 of 2) 09/22/2027 DTAP/TDAP/TD VACCINES (2 - T d or Tdap) 02/20/2028 02/19/2018 HIB VACCINE Aged Out No longer eligi ble based on patient's age to complete this topic HPV VACCINE Aged Out No longer eligi ble based on patient's age to complete this topic MENINGOCOCCAL (Group B) VACC INE SHARED DECISION-MAKING Aged Out No longer eligibl e based on patient's age to complete this topic MENINGOCOCCAL GROUPS A/C/Y/W VACCINE Aged Out No longer eligible b ased on patient's age to complete this topic PNEUMOCOCCAL VACCINE Aged Out No long er eligible based on patient's age to complete this topic Insurance [facility]
== END 2025-04-30 13:53 | disposition home or self-care (01) ==
PROVIDERS: PCP Obstetrics & Gynecology; Visit Provider Surgery
DX: R92.8 Other abnormal and inconclusive findings on diagnostic imaging of breast (principal); N63.10 Unspecified lump in the right breast, unspecified quadrant; Z98.82 Breast implant status; Z80.3 Family history of malignant neoplasm of breast; R92.343 Mammographic extreme density, bilateral breasts
CPT/HCPCS: 77049; A9577; C8908